=== PATIENT | female | born 1985 | race Caucasian/White ===

== ENCOUNTER 2021-10-03 19:50 | Emergency (ER) | payer OTHER ==
[2021-10-03 21:15] LABS: ANION GAP 10.8 mEq/L (7-13); CHLORIDE,CL 101 mmol/L (98-107); SODIUM,NA 134 mmol/L (136-145)
== END 2021-10-03 22:43 | disposition home or self-care (01) ==
LOC: DL.ED 19:50
DX: O20.8 Other hemorrhage in early pregnancy (principal); O36.0910 Maternal care for other rhesus isoimmunization, first trimester, not applicable or unspecified; Z3A.12 12 weeks gestation of pregnancy
CPT/HCPCS: 36415; 76815; 80053; 81001; 84702; 84703; 85025; 99284-25; J2790